=== PATIENT | female | born 1995 | race Two or more races ===

== ENCOUNTER 2022-06-22 16:18 | Emergency (ER) | payer BC ==
[~2022-06-22] VITALS: Ht 182.9 cm; Wt 68.2 kg
[2022-06-22] MEDS ORDERED: ATOM40CA9 PO (16:32)
[2022-06-22] MEDS ORDERED: ETHI1TAB PO (16:32)
[2022-06-22] MEDS ORDERED: CETI-450 PO (16:32)
[2022-06-22] MEDS ORDERED: SERT-162 PO (16:32)
[2022-06-22 18:15] VITALS: BP 118/67
== END 2022-06-22 19:10 | disposition home or self-care (01) ==
LOC: EMS 16:18
DX: S80.11XA Contusion of right lower leg, initial encounter (principal); F41.9 Anxiety disorder, unspecified; F32.A Depression, unspecified; F42.9 Obsessive-compulsive disorder, unspecified; F12.90 Cannabis use, unspecified, uncomplicated; Z88.8 Allergy status to other drugs, medicaments and biological substances; Z98.890 Other specified postprocedural states; X58.XXXA Exposure to other specified factors, initial encounter; Y93.89 Activity, other specified; Y92.89 Other specified places as the place of occurrence of the external cause; Y99.8 Other external cause status
CPT/HCPCS: 71045; 93005; 99284

== ENCOUNTER 2024-02-16 21:08 | Emergency (ER) | payer BC ==
[~2024-02-16] VITALS: Ht 182.9 cm; Wt 79.5 kg
[2024-02-16 21:08] VITALS: BP 133/98; TEMP 98.6
[~2024-02-16 21:08] MED LIST: ATOM40CA9 PO; CETI-450 PO; ETHI1TAB PO; SERT-162 PO
[2024-02-16 21:40] LABS: BASOPHILS % (AUTO) 0.6 % (0.0-2.0); EOSINOPHILS % (AUTO) 5.8 % (1.0-6.0); HEMOGLOBIN 12.1 g/dL (12.0-16.0); LYMPHOCYTES # (AUTO) 3.5 K/uL (1.0-4.8); LYMPHOCYTES % (AUTO) 41.3 % (22.0-44.0); MEAN CORPUSCULAR HEMOGLOBIN 29.3 pg (26.0-34.0); MEAN CORPUSCULAR HGB CONC 33.6 G/dL (31.0-37.0); MEAN CORPUSCULAR VOLUME 87 fL (80-100); MONOCYTES # (AUTO) 0.5 K/uL (0.1-1.0); MONOCYTES % (AUTO) 6.1 % (2.0-9.0); NEUTROPHILS # (AUTO) 3.9 K/uL (1.8-7.7); NEUTROPHILS % (AUTO) 46.2 % (40.0-70.0); PLATELET COUNT (AUTO) 363 K/uL (150-450); RED BLOOD CELL COUNT(AUTO) 4.12 MIL/uL (4.00-5.20); RED CELL DISTRIBUTION WIDTH 13.1 % (11.5-14.5); WHITE BLOOD COUNT (AUTO) 8.4 K/uL (4.5-11.0)
[2024-02-16 21:47] LABS: ANION GAP 11 mmol/L (8-16); CALCIUM, TOTAL 8.9 mg/dL (8.8-10.5); CARBON DIOXIDE 25 mmol/L (22-29); CHLORIDE 101 mmol/L (98-107); CREATININE 0.97 mg/dL (0.60-1.30); GLOMERULAR FILTR. RATE CALC > 60 mL/min (>60); GLUCOSE,RANDOM 104 mg/dL (70-110); POTASSIUM 3.6 mmol/L (3.5-5.1); SODIUM SERUM 137 mmol/L (136-145); UREA NITROGEN, BLOOD 13 mg/dL (7-18)
[2024-02-16 22:03] LABS: ALANINE AMINOTRANSFERASE 26 U/L (12-78); ALBUMIN 3.5 g/dL (3.4-5.0); ALKALINE PHOSPHATASE 97 U/L (46-116); ASPARTATE AMINOTRANSFERASE 21 U/L (15-37); BILIRUBIN,TOTAL 0.2 mg/dL (0.1-1.0); HCG,QUANTITATIVE < 1 mIU/mL (0-6); TOTAL PROTEIN, SERUM 7.6 g/dL (6.4-8.2)
[2024-02-16] MEDS ORDERED: ALBU18HF12 IH (23:11)
[2024-02-16] MEDS ORDERED: PRED-554 PO (23:11)
[2024-02-16 23:15] VITALS: PULSE 76; RESP 20; O2SAT 96
[2024-02-16] MEDS: ALBUTEROL SULFATE 2.5 MG/0.5 ML NEB SOLUTION NEB ONE (23:15)
[2024-02-16] MEDS: IPRATROPIUM BROMIDE 0.5 MG/2.5 ML NEB SOLUTION NEB ONE (23:15)
[2024-02-16] MEDS: PredniSONE 20 MG TABLET PO ONE (23:21)
== END 2024-02-16 23:34 | disposition home or self-care (01) ==
LOC: EMS 21:09
DX: J45.901 Unspecified asthma with (acute) exacerbation (principal); F32.A Depression, unspecified; F41.9 Anxiety disorder, unspecified; F12.90 Cannabis use, unspecified, uncomplicated
CPT/HCPCS: 99285; 71045; 80053; 84702; 85025; 36415; 94640; 93005; J7512; J7613